=== PATIENT | male | born 1955 | race Caucasian/White ===

== ENCOUNTER 2018-06-08 10:37 | Day surgery (SDC) | payer MEDICAID ==
[2018-06-06 10:07] VITALS: BMI 28.3
[~2018-06-08 10:37] MED LIST: ACETAMINOPHEN TAB 500 MG TAB PO ONE; DEXAMETHASONE SOD PHOSPHATE 10 MG/ML 1 ML VIAL IV ONE; HYDROmorphone 0.5 MG/0.5 ML SYRINGE IVP PRN; LACTATED RINGERS 1,000 ML IV SCH; LIDOCAINE 1% 20 ML VIAL (10MG/ML) FOR IV START INTRADERMA PRN; MIDAZOLAM (PF) 2 MG/2 ML VIAL IV PRN; ONDANSETRON 4 MG/2 ML VIAL IVP ONE; ceFAZolin IN SWFI 2 GM/20 ML SYRINGE IVP ONE; fentaNYL (PF) 50 MCG/ML 2 ML AMP IV PRN; fentaNYL (PF) 50 MCG/ML 20 ML VIAL IVP PRN
[2018-06-08] MEDS ORDERED: fentaNYL (PF) 50 MCG/ML 2 ML AMP IV ONE (11:38)
[2018-06-08] MEDS ORDERED: MIDAZOLAM 2 MG/2 ML VIAL IV ONE (11:40)
[2018-06-08] MEDS ORDERED: ePHEDrine SULFATE/0.9% NACL/PF 50 MG/5 ML SYRINGE IV ONE (12:45)
[2018-06-08] MEDS ORDERED: GLYCOPYRROLATE 0.2 MG/ML 2 ML VIAL ONE (12:45)
[2018-06-08] MEDS ORDERED: MIDAZOLAM 2 MG/2 ML VIAL ONE (12:45)
[2018-06-08] MEDS ORDERED: fentaNYL (PF) 50 MCG/ML 2 ML AMP ONE (12:45)
[2018-06-08] MEDS ORDERED: PROPOFOL 10 MG/ML 20 ML VIAL IV ONE (12:45)
[2018-06-08] MEDS ORDERED: ROPIVACAINE 5 MG/ML 30 ML VIAL ONE (12:45)
[2018-06-08] MEDS ORDERED: DEXAMETHASONE SOD PHOSPHATE 4 MG/ML 1 ML VIAL ONE (12:45)
[2018-06-08] MEDS ORDERED: SUCCINYLCHOLINE CHLORIDE 100 MG/5 ML SYR IV ONE (12:45)
[2018-06-08] MEDS ORDERED: LIDOCAINE 1% INJ 10MG/ML (20 ML MDV) ONE (12:45)
[2018-06-08] MEDS ORDERED: PHENYLEPHRINE-0.9% NACL SYG 1 MG/10 ML SYRINGE ONE (12:45)
[2018-06-08] MEDS ORDERED: ceFAZolin 1,000 MG in SODIUM CHLORIDE 0.9% 1,000 ML IRRIGATION ONE (13:16)
[2018-06-08] MEDS ORDERED: LACTATED RINGERS 1,000 ML IV ONE (13:22)
[2018-06-08 14:41] VITALS: TEMP 97
[2018-06-08 16:04] VITALS: RESP 18
[2018-06-08 16:24] VITALS: BP 135/84; PULSE 84
--- NOTE | 2018-06-08 20:38 | OP ---
OPERATIVE REPORT DATE OF PROCEDURE: June 08, 2018. PREOPERATIVE DIAGNOSIS: Left closed comminuted displaced clavicle fracture. POSTOPERATIVE DIAGNOSIS: Left closed comminuted displaced clavicle fracture. OPERATION PERFORMED: Open reduction, internal fixation, left clavicle fracture. SURGEON: Noe Bear MD. MEDICAL TECHNOLOGIST BLOOD BANK: Mauro RODRIGUEZ. ANESTHESIA: General endotracheal. ESTIMATED BLOOD LOSS: 25 mL. TOURNIQUET: None. DRAINS: None. COMPLICATIONS: None apparent. DISPOSITION: Postanesthesia care unit. 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 He presented to my office with a 100% displaced and shortened comminuted midshaft clavicle fracture. Both operative and nonoperative management were discussed with him and he has decided to go forward with operative intervention. The risks of procedure were discussed with him in detail. These risks include, but are not limited to risk of infection, nerve damage, bleeding, pain, and a small risk of deep vein thrombosis which could lead to fatal pulmonary embolism. Further risk would include irritation from the hardware which could necessitate removal of the plate and screws in the future. All of Dr. Garnica's questions were answered to his satisfaction. Appropriate informed consent was obtained. DESCRIPTION OF THE PROCEDURE: Patient identified in preoperative holding area. Surgical sites were marked by both the patient and myself. He was given 2 g of Ancef IV for prophylactic purposes. He was then transported to the operative suite. He was placed supine on the operative table. A general anesthetic was then administered and dosed per the anesthesia without apparent complication. He was then placed into the beach chair position well-padded in preparation for surgery. Great care was taken to ensure that his cervical spine is in neutral alignment, well-padded and maintained that way throughout the operative procedure. Great care was also taken to ensure that his legs were appropriately padded as well. The left upper extremity was then prepped and draped in usual sterile fashion. Standard surgical pause undertaken to ensure that we were operating the correct site and that appropriate preoperative antibiotics were given. All staff in the room were in agreement we proceeded. The outlines of the acromion, AC joint, coracoid and clavicle were marked with a surgical pen. The outlines of the fracture were also marked with a surgical pen. A planned 7 to 10 cm incision centered over the fracture on the anterior aspect of the clavicle was then marked with a surgical pen. The incision was then made with a 15 blade scalpel. Dissection was carried down sharply to the surface of the clavicle. This was done to preserve thick flaps for closure over the hardware at the end of the case. Blunt dissection was then utilized. The fracture was midshaft. There was a very large anterior comminuted piece. I was able to reduce the fracture fairly easily with reduction clamps. The posterior aspect of the fracture keyed in very nicely. The large anterior butterfly fragment also keyed in very nicely. I was able to hold the medial and lateral main fragments of the fracture with a K-wire which was inserted from anterior to posterior. I then proceeded with reduction and fixation of the large anterior butterfly fragment. This was reduced with a [id number] clamp. I was then able to place two 2.3 mm bicortical nonlocking screws in a compression fracture from anterior to posterior to provide fixation of the butterfly fragment to the main lateral fragment of the fracture. This provided a near anatomic reduction of the butterfly fragment. I then proceeded with placement of a superior locking plate. We utilized an [employer] precontoured 3.5 mm clavicle locking plate. The area of the butterfly segment was fairly long. Therefore, we utilized a fairly long plate. I was able to get 3 bicortical screws both medial and lateral. I then proceeded with fixation. I started with a 3.5 mm bicortical nonlocking screw in the oblong hole of the medial aspect of the plate. I had excellent purchase in bone. I then placed a 3.5 mm bicortical nonlocking screw through the oblong hole in the lateral aspect of the plate. This was placed in a compression type fashion as well to further compress the fracture. This provided anatomic reduction of his fracture. I then proceeded to place 2 bicortical 3.5 mm locking screws in the medial aspect of the fracture and then two 3.5 mm bicortical locking screws through the lateral aspect of the plate and fracture. At this point in time, no further work was deemed necessary. The fracture had been reduced anatomically. The large anterior butterfly fragment had been reduced very nicely and keyed in nicely in an anatomic fashion. All screws had excellent purchase in bone. At this point time, no further work was deemed necessary. The wound was then thoroughly irrigated with sterile saline solution with antibiotic added. The deltotrapezial fascia was closed with #1 Vicryl interrupted suture. This provided a nice muscular fascial layer coverage of the plate. The subcutaneous wound was again thoroughly irrigated with sterile saline solution with antibiotic added. The subcutaneous tissue was closed with 2-0 Vicryl interrupted suture and the skin was closed with a running 3-0 subcuticular Quill suture. Dermabond was then applied to the incision. Sterile dressing was then applied. The patient's left upper extremity was placed into a standard sling. All sponge and needle counts were deemed correct prior to closure. The patient tolerated the procedure without apparent complication. He was transferred to recovery room in stable condition. MMODL / IJN: [id number] /
--- NOTE | 2018-06-09 07:51 | P.ONQ ---
Anesthesiology Proc Note - PNB - Peripheral Nerve Block Performed Left Interscalene Single Time Out Performed: Yes Procedure Start Time: :40 Procedure Stop Time: :45 Indication: Acute Post-Operative Pain, Requested by physician Sedation Type: Sedate with meaningful contact maintained Preparation: Sterile Prep Position: Supine Needle Size: 50mm (2") Needle Gauge: 21 Technique: Ultrasound (ropi .5% 30cc plus dexamethasone 4mg) Blood Aspirated: No Pain Paresthesia on Injection Noted: No Events: Uneventful and Well Tolerated
== END 2018-06-08 16:50 | disposition home or self-care (01) ==
LOC: OR 10:37
PROVIDERS: ATTEND Orthopaedic Surgery Sports Medicine
DX: S42.022A Displaced fracture of shaft of left clavicle, initial encounter for closed fracture (principal); Y93.23 Activity, snow (alpine) (downhill) skiing, snowboarding, sledding, tobogganing and snow tubing; I10 Essential (primary) hypertension; R51 Headache; N40.0 Benign prostatic hyperplasia without lower urinary tract symptoms; Z79.1 Long term (current) use of non-steroidal anti-inflammatories (NSAID); Z79.899 Other long term (current) drug therapy; Z79.891 Long term (current) use of opiate analgesic
CPT/HCPCS: 64415; 23515; C1713; J2250; J1100 ×2; J2405; J0690 ×2; J2001; J3010; J2795; J2370; J0330; J2704

== ENCOUNTER → 2021-04-08 | Outpatient (CLI) | payer MEDICAID ==
--- NOTE | 2021-04-08 10:06 | XR ---
EXAMINATION TYPE: XR Hip Bilateral and AP pelvis DATE OF EXAM: 04/08/2021 COMPARISON: NONE HISTORY: Pain TECHNIQUE: A single AP view of the pelvis is obtained. Two views of the bilateral hip are obtained. FINDINGS: There is no acute fracture/dislocation evident in the pelvis. There is moderate to severe narrowing of the superior compartment of the hip joint bilaterally. Soft tissue ossification adjacent to lateral margin of the acetabulum bilaterally no acute fracture. SI joint symmetric. No erosive ch anges. IMPRESSION: 1. Moderate to severe bilateral hip arthropathy correlate for femoral acetabular impingement.
== END | disposition home or self-care (01) ==
LOC: RADXRMAIN 08:18
PROVIDERS: ATTEND Internal Medicine
DX: M16.0 Bilateral primary osteoarthritis of hip (principal)
CPT/HCPCS: 73521

== ENCOUNTER 2021-11-14 12:22 | Emergency (ER) | payer MEDICAID ==
[2021-11-14 12:37] VITALS: RESP 16; TEMP 97.8
[2021-11-14] MEDS ORDERED: MECLIZINE 12.5 MG TAB PO STA (12:37)
[2021-11-14] MEDS ORDERED: SODIUM CHLORIDE 0.9% 1,000 ML IV STA (12:37)
[2021-11-14] MEDS ORDERED: SODIUM CHLORIDE 0.9% 500 ML 500 ML IV STA (12:37)
[2021-11-14 12:50] LABS: Basophils # (A) 0.1 k/uL (0-0.2); Basophils % (A) 1 %; Eosinophils # (A) 0.1 k/uL (0-0.7); Eosinophils % (A) 2 %; HCT 46.9 % (39.0-53.0); Lymphocytes # (A) 1.9 k/uL (1.0-4.8); Lymphocytes % (A) 23 %; MCH 32.2 pg (25.0-35.0); MCHC 34.1 g/dL (31.0-37.0); MCV 94.4 fL (80.0-100.0); Mean Platelet Volume 7.6; Monocytes # (A) 0.5 k/uL (0-1.0); Monocytes % (A) 6 %; Neutrophils # (A) 5.4 k/uL (1.3-7.7); Neutrophils % (A) 65 %; Platelet Count 255 k/uL (150-450); RBC 4.97 m/uL (4.30-5.90); RDW 12.4 % (11.5-15.5); WBC 8.3 k/uL (3.8-10.6)
[2021-11-14] MEDS ORDERED: ONDANSETRON 4 MG/2 ML VIAL IVP STA (12:59)
--- NOTE | 2021-11-14 12:59 | XR ---
EXAMINATION TYPE: XR chest 2V DATE OF EXAM: 11/14/2021 12:55 PM COMPARISON: None TECHNIQUE: XR chest 2V Frontal and lateral views of the chest. CLINICAL INDICATION:Male, 66 years old with history of Dizziness; FINDINGS: Lungs/Pleura: There is no evidence of pleural effusion, focal consolidation, or pneumothorax. Pulmonary vascularity: Unremarkable. Heart/mediastinum: Cardiomediastinal silhouette is unremarkable. Musculoskeletal: No acute osseous pathology. Fixation plate involving the left clavicle. IMPRESSION: No acute cardiopulmonary disease/process.
[2021-11-14 13:01] LABS: ALT 20 U/L (4-49); AST 30 U/L (17-59); African American GFR (CKD) >90 (>60 ml/min/1.73 sqM); Albumin 4.4 g/dL (3.5-5.0); Alkaline Phosphatase 84 U/L (38-126); Anion Gap 7 mmol/L; Blood Urea Nitrogen 17 mg/dL (9-20); Calcium 9.2 mg/dL (8.4-10.2); Carbon Dioxide 23 mmol/L (22-30); Chloride 110 mmol/L (98-107); Creatine Kinase 76 U/L (55-170); Glucose 98 mg/dL (74-99); Non-African American GFR(CKD) 87 (>60 ml/min/1.73 sqM); Potassium 4.5 mmol/L (3.5-5.1); Sodium 140 mmol/L (137-145); Total Bilirubin 1.5 mg/dL (0.2-1.3); Total Protein 7.6 g/dL (6.3-8.2)
--- NOTE | 2021-11-14 14:09 | ED ---
Dizziness HPI - General Chief Complaint: Dizziness Stated Complaint: Dizziness Time Seen by Provider: 11/14/21 12:37 Source: patient, family, RN notes reviewed Mode of arrival: ambulatory Limitations: no limitations - History of Present Illness Initial Comments: 58-year-old male with a history of bronchitis about 2 weeks ago who states he had some dizziness with lightheadedness and nausea starting 2 days ago. He states he had played golf earlier in the week he also states she's been exposed to someone with COVID-19 recently. Denies any headache he does state he gets dizziness with certain head movements. No focal weakness no fevers chills no sw eats. He did has noticed also his urine is darker than usual. No chest pain no palpitations no other complaints or modifying factors MD Complaint: dizziness, lightheadedness - Related Data Home Medications Medication Instructions Recorded Confirmed FLUoxetine HCL [PROzac] 20 mg PO QAM 02/02/14 06/08/18 Metoprolol Succinate 25 mg PO QAM 02/02/14 06/08/18 Ibuprofen [Motrin] 200 - 400 mg PO Q6HR PRN 08/01/14 06/08/18 Multivitamins, Thera [Multivitamin] 1 tab PO DAILY 08/01/14 06/08/18 [place]-3 Fatty Acids/Fish Oil [Fish 1 each PO DAILY 08/01/14 06/08/18 Oil 1,000 mg Softgel] HYDROcodone/APAP 7.5-325MG [[place]edar 1 tab PO Q6HR PRN 06/06/18 06/08/18 7.5-325] Previous Rx's Medication Instructions Recorded Doxycycline Hyclate 100 mg PO BID #10 tab 06/08/18 HYDROcodone/APAP 7.5-325MG [[place] 1 - 2 each PO Q6HR PRN #56 tab 06/08/18 7.5-325] ondansetron HCL [Zofran] 4 mg PO Q6HR PRN #30 tablet 06/08/18 Meclizine [Antivert] 25 mg PO TID #20 tab 11/14/21 Ondansetron Odt [Zofran Odt] 4 mg PO Q8HR PRN #15 tab 11/14/21 Allergies Allergy/AdvReac Type Severity Reaction Status Date / Time No Known Allergies Allergy Verified 02/14/19 11:03 Review of Systems ROS Statement: Those systems with pertinent positive or pertinent negative responses have been documented in the HPI. ROS Other: All systems not noted in ROS Statement are negative. Past Medical History Past Medical History: Hypertension Additional Past Medical History / Comment(s): fx left clavicle History of Any Multi-Drug Resistant Organisms: None Reported Past Surgical History: Prostate Surgery Additional Past Surgical History / Comment(s): BPH. Past Anesthesia/Blood Transfusion Reactions: No Reported Reaction Past Psychological History: No Psychological Hx Reported Additional Psychological History / Comment(s): CLAUSTROPHOBIA. Past Alcohol Use History: Occasional Past Drug Use History: None Reported - Past Family History Mother Family Medical History: No Reported History General Exam - General Exam Comments Initial Comments: This is a well-developed well-nourished awake alert oriented 4 male Limitations: no limitations General appearance: alert, in no apparent distress Head exam: Present: atraumatic, normocephalic, normal inspection Eye exam: Present: normal appearance, PERRL, EOMI. Absent: scleral icterus, conjunctival injection, periorbital swelling ENT exam: Present: mucous membranes dry Neck exam: Present: normal inspection, full ROM, other (No stridor JVD or bruits). Absent: tenderness, meningismus, lymphadenopathy Respiratory exam: Present: normal lung sounds bilaterally. Absent: respiratory distress, wheezes, rales, rhonchi, stridor Cardiovascular Exam: Present: regular rate, normal rhythm, normal heart sounds. Absent: systolic murmur, diastolic murmur, rubs, gallop, clicks GI/Abdominal exam: Present: soft, normal bowel sounds. Absent: distended, tenderness, guarding, rebound, rigid Extremities exam: Present: normal inspection, full ROM, normal capillary refill. Absent: tenderness, pedal edema, joint swelling, calf tenderness Back exam: Present: normal inspection Neurological exam: Present: alert, oriented X3, CN II-XII intact Psychiatric exam: Present: normal affect, normal mood Skin exam: Present: warm, dry, intact, normal color. Absent: rash Course Vital Signs 11/14/21 12:32 Temperature 97.8 F Pulse Rate 63 Respiratory 16 Rate Blood Pressure 154/98 O2 Sat by Pulse 98 Oximetry EKG Findings - EKG Results: EKG: interpreted by ERMD, WNL, sinus rhythm, normal axis, normal QRS, normal S T/T, no acute changes (Normal sinus rhythm rate 62. Interval was 79 QRS duration 88 QT since QTC 390/395 st-t wave changes) Medical Decision Making - Medical Decision Making I did reevaluate patient on several occasions he is feeling improved after IV hydration. Also dizziness has improved. The presentation appears be consistent with heat exhaustion and dehydration with a component of his previous episodes of vertigo. Patient will be discharged on appropriate medication including Antivert as well as Zofran and hydration and has been discussed. - Lab Data Result diagrams: 11/14/21 12:41 11/14/21 12:41 Lab Results 11/14/21 11/14/21 11/14/21 Range/Units 12:41 12:41 12:41 WBC 8.3 (3.8-10.6) k/uL RBC 4.97 (4.30-5.90) m/uL Hgb 16.0 (13.0-17.5) gm/dL Hct 46.9 (39.0-53.0) % MCV 94.4 (80.0-100.0) fL MCH 32.2 (25.0-35.0) pg MCHC 34.1 (31.0-37.0) g/dL RDW 12.4 (11.5-15.5) % Plt Count 255 (150-450) k/uL MPV 7.6 Neutrophils % 65 % Lymphocytes % 23 % Monocytes % 6 % Eosinophils % 2 % Basophils % 1 % Neutrophils # 5.4 (1.3-7.7) k/uL Lymphocytes # 1.9 (1.0-4.8) k/uL Monocytes # 0.5 (0-1.0) k/uL Eosinophils # 0.1 (0-0.7) k/uL Basophils # 0.1 (0-0.2) k/uL Sodium 140 (137-145) mmol/L Potassium 4.5 (3.5-5.1) mmol/L Chloride 110 H (98-107) mmol/L Carbon Dioxide 23 (22-30) mmol/L Anion Gap 7 mmol/L BUN 17 (9-20) mg/dL Creatinine 0.90 (0.66-1.25) mg/dL Est GFR (CKD-EPI)AfAm >90 (>60 ml/min/1.73 sqM) Est GFR (CKD-EPI)NonAf 87 (>60 ml/min/1.73 sqM) Glucose 98 (74-99) mg/dL Calcium 9.2 (8.4-10.2) mg/dL Magnesium 2.0 (1.6-2.3) mg/dL Total Bilirubin 1.5 H (0.2-1.3) mg/dL AST 30 (17-59) U/L ALT 20 (4-49) U/L Alkaline Phosphatase 84 (38-126) U/L Creatine Kinase 76 (55-170) U/L Troponin I 0.013 (0.000-0.034) ng/mL Total Protein 7.6 (6.3-8.2) g/dL Albumin 4.4 (3.5-5.0) g/dL Coronavirus (PCR) (Not Detectd) Influenza Type A RNA (Not Detectd) Influenza Type B (PCR) (Not Detectd) 11/14/21 11/14/21 Range/Units 13:39 13:39 WBC (3.8-10.6) k/uL RBC (4.30-5.90) m/uL Hgb (13.0-17.5) gm/dL Hct (39.0-53.0) % MCV (80.0-100.0) fL MCH (25.0-35.0) pg MCHC (31.0-37.0) g/dL RDW (11.5-15.5) % Plt Count (150-450) k/uL MPV Neutrophils % % Lymphocytes % % Monocytes % % Eosinophils % % Basophils % % Neutrophils # (1.3-7.7) k/uL Lymphocytes # (1.0-4.8) k/uL Monocytes # (0-1.0) k/uL Eosinophils # (0-0.7) k/uL Basophils # (0-0.2) k/uL Sodium (137-145) mmol/L Potassium (3.5-5.1) mmol/L Chloride (98-107) mmol/L Carbon Dioxide (22-30) mmol/L Anion Gap mmol/L BUN (9-20) mg/dL Creatinine (0.66-1.25) mg/dL Est GFR (CKD-EPI)AfAm (>60 ml/min/1.73 sqM) Est GFR (CKD-EPI)NonAf (>60 ml/min/1.73 sqM) Glucose (74-99) mg/dL Calcium (8.4-10.2) mg/dL Magnesium (1.6-2.3) mg/dL Total Bilirubin (0.2-1.3) mg/dL AST (17-59) U/L ALT (4-49) U/L Alkaline Phosphatase (38-126) U/L Creatine Kinase (55-170) U/L Troponin I (0.000-0.034) ng/mL Total Protein (6.3-8.2) g/dL Albumin (3.5-5.0) g/dL Coronavirus (PCR) Not Detected (Not Detectd) Influenza Type A RNA Not Detected (Not Detectd) Influenza Type B (PCR) Not Detected (Not Detectd) - Radiology Data Radiology results: report reviewed (Imaging reviewed as well as report no acute findings.), image reviewed Disposition Clinical Impression: Dehydration, Heat exhaustion, Benign paroxysmal positional vertigo Disposition: HOME SELF-CARE Condition: Good Instructions (If sedation given, give patient instructions): Dizziness (ED), Dehydration (ED), Heat Exhaustion (ED) Prescriptions: Meclizine [Antivert] 25 mg PO TID #20 tab Ondansetron Odt [Zofran Odt] 4 mg PO Q8HR PRN #15 tab PRN Reason: Nausea Is patient prescribed a controlled substance at d/c from ED?: No Referrals: Carmencita Blas MD [Primary Care Provider] - 1-2 days Decision Date: 11/14/21 Decision Time: 14:36
[2021-11-14 14:51] VITALS: BP 140/71; PULSE 56
== END 2021-11-14 14:56 | disposition home or self-care (01) ==
LOC: EC 12:22
DX: T67.5XXA Heat exhaustion, unspecified, initial encounter (principal); E86.0 Dehydration; H81.10 Benign paroxysmal vertigo, unspecified ear; I10 Essential (primary) hypertension; Z20.822 Contact with and (suspected) exposure to COVID-19; Z79.899 Other long term (current) drug therapy
CPT/HCPCS: 36415; 93005; 80053; 82550; 83735; 84484; 85025; 87502; 87635; 71046; 99284; 96374; 96361; J2405

== ENCOUNTER → 2022-05-20 | Outpatient (CLI) | payer MEDICAID ==
[2022-05-20 16:33] LABS: African American GFR (CKD) >90 (>60 ml/min/1.73 sqM); Blood Urea Nitrogen 16 mg/dL (9-20); Non-African American GFR(CKD) 86 (>60 ml/min/1.73 sqM)
--- NOTE | 2022-05-20 17:18 | CT ---
EXAMINATION TYPE: CT brain wo/w con DATE OF EXAM: 05/20/2022 COMPARISON: None. HISTORY: Dizziness and TINNITUS OF BOTH EARS. CT DLP: 2387.10 mGycm Automated exposure control for dose reduction was used. CONTRAST: CT scan of the head is performed without and with IV Contrast, patient injected with 85 mL of Isovue 300. FINDINGS: Noncontrast images show no acute intracranial hemorrhage or midline shift. Postcontrast images show no suspicious enhancing mass. The ventricles and sulci are within normal li mits in size for patient's age. Jaquez-white matter differentiation is maintained. No suspicious opacif ication of the mastoid air cells is seen bilaterally. The globes are intact and the visualized sinus es are clear. Nasal septum is deviated to left of midline. IMPRESSION: No suspicious finding is seen to account for patient's clinical symptoms.
--- NOTE | 2022-05-20 21:00 | US ---
EXAMINATION TYPE: US carotid duplex BILAT DATE OF EXAM: 05/20/2022 COMPARISON: NONE CLINICAL HISTORY: 67-year-old male I65.23 CAROTID STENOSIS BILATERAL. Tinnitus of ears. TECHNIQUE: Carotid duplex ultrasound examination. Indirect Doppler criteria was utilized. FINDINGS: EXAM MEASUREMENTS: RIGHT: Peak Systolic Velocity (PSV) cm/sec ----- Right CCA: 97.1 ----- Right ICA: 85.3 *bulb measurement ----- Right ECA: 92.7 ICA/CCA ratio: 0.9 RIGHT: End Diastole cm/sec ----- Right CCA: 25.6 ----- Right ICA: 22.6 ----- Right ECA: 17.6 LEFT: Peak Systolic Velocity (PSV) cm/sec ----- Left CCA: 122.8 ----- Left ICA: 104.3 *bulb measurement ----- Left ECA: 110.8 ICA/CCA ratio: 0.8 LEFT: End Diastole cm/sec ----- Left CCA: 30.2 ----- Left ICA: 25.6 ----- Left ECA: 13.9 VERTEBRALS (direction of flow): Right Vertebral: Antegrade Left Vertebral: Antegrade Rhythm: Normal MANAGER MARKET RESEARCH NOTES: Elevated velocities within prox right CCA (130.2 cm/s) and mid left CCA (127.5 cm/ s). Some plaque seen at bilateral bulb. IMPRESSION: 1. Mildly elevated velocities within the proximal right CCA and mid left CCA. Findings may be due to turbulent flow, hypertension, or could reflect [id number] upstream stenoses such as at the arc h vessel origins. 2. No hemodynamically significant internal carotid artery stenosis on either side. Criteria for Assigning % of Stenosis / Diameter reduction (Estimation based on the indirect measurements of the internal carotid artery velocities (ICA PSV). 1. Normal (no stenosis)=ICA PSV < 125 cm/s: ratio < 2.0: ICA EDV<40 cm/s. 2. Less than 50% stenosis=ICA PSV < 125 cm/s: ratio < 2.0: ICA EDV<40 cm/s. 3. 50 to 69% stenosis=ICA PSV of 125 to 230 cm/s: ration 2.0 ? 4.0: ICA EDV 40-100 cm/s. 4. Greater than 70% stenosis to near occlusion= ICA PSV > 230 cm/s: ratio > 4.0: ICA EDV > 100 cm/s. 5. Near occlusion= ICA PSV velocities may be low or undetectable: variable ratio and ICA EDV. 6. Total occlusion=unable to detect flow.
== END | disposition home or self-care (01) ==
LOC: RADUSWWP 14:45
PROVIDERS: ATTEND Internal Medicine
DX: I65.23 Occlusion and stenosis of bilateral carotid arteries (principal); H93.13 Tinnitus, bilateral
CPT/HCPCS: 82565; 84520; 93880; 70470; 36415; Q9967

== ENCOUNTER → 2024-01-05 | Outpatient (CLI) | payer MEDICAID ==
--- NOTE | 2024-01-05 18:59 | XR ---
EXAMINATION TYPE: XR KUB DATE OF EXAM: 01/05/2024 HISTORY: Pain Comparison: None.Single KUB is submitted for interpretation. Findings: Right renal calculi: 3 mm calculus lower pole right kidney. Additional 3 mm calculus upper pole right kidney. Overlying bowel content limits evaluation. Right ureteral calculi: None Visualized. Left renal calculi: 3 mm calculus lower pole left kidney. Left ureteral calculi: 2.5 mm right UVJ calculus. Pelvic calcifications: None Visualized. Bowel gas pattern is unremarkable. No free air. No mass effects. IMPRESSION: 1. As above
--- NOTE | 2024-01-06 10:09 | CT ---
EXAMINATION TYPE: CT abdomen pelvis wo con DATE OF EXAM: 01/05/2024 COMPARISON: 02/02/2014 HISTORY: N20.1 RIGHT SIDE RENAL CALCULI Examination of the solid and hollow viscera is limited given the lack of contrast. FINDINGS: LUNG BASES: No evidence for nodule. No evidence for infiltrate. LIVER/GB: The gallbladder is unremarkable. No space-occupying hepatic lesion. PANCREAS: No pancreatic mass identified. No inflammatory process seen. SPLEEN: No evidence for splenomegaly. No intrasplenic lesions seen. ADRENALS: No adrenal nodules identified. No evidence for thickening. KIDNEYS: No evidence for renal mass. 2.5 mm right UVJ calculus resulting in mild right-sided hydronep hrosis. 3 mm calculus mid pole right kidney. Additional nonobstructing 3 mm calculus upper pole right kidney. 3 mm calculus lower pole left kidney. 2 mm calculus left kidney midpole. No left-sided hydro nephrosis. BOWEL: Appendix has a normal appearance. No evidence of bowel obstruction. No inflammatory process. Lymph nodes: No evidence for adenopathy greater than 1 cm. Abdominal aorta: Atheromatous changes seen. No evidence for aneurysm. Genital organs: No significant abnormality. Other: No significant abnormality. IMPRESSION: 2.5 mm right UVJ calculus resulting in mild right-sided hydronephrosis.
== END | disposition home or self-care (01) ==
LOC: RADXRMAIN 17:59
PROVIDERS: ATTEND Urology
DX: N13.2 Hydronephrosis with renal and ureteral calculous obstruction (principal)
CPT/HCPCS: 74018; 74176

== ENCOUNTER → 2024-01-08 | Outpatient (CLI) | payer MEDICAID ==
--- NOTE | 2024-01-08 11:50 | XR ---
EXAMINATION TYPE: XR KUB DATE OF EXAM: 01/08/2024 Comparison: 01/05/2024 Clinical History: 68-year-old male URETERAL CALCULUS Findings: Suspect a 4 mm nonobstructive left renal stone. 5 mm mid right renal stone. Moderate stool right side of the abdomen and mild within the left side of the abdomen. No other definite suspicious calcificat ions seen. Nonobstructive bowel gas pattern. Mild degenerative change both hips. Impression: Bilateral renal calculi measuring up to 5 mm. No other definite suspicious calcification is radiograp hically apparent. [facility], , 01/08/2024 11:48 AM
== END ==
LOC: LABMAIN 10:39
PROVIDERS: ATTEND Urology
DX: N20.2 Calculus of kidney with calculus of ureter (principal)
CPT/HCPCS: 74018

== ENCOUNTER → 2024-07-04 | Outpatient (CLI) | payer MEDICAID ==
[2024-07-04 15:11] LABS: Hepatitis A Antibody IgM Nonreactive (Nonreactive); Hepatitis B Core IgM Nonreactive (Nonreactive); Hepatitis B Surface Antigen Nonreactive (Nonreactive); Hepatitis C IgG Antibody Nonreactive (Nonreactive)
[2024-07-04 15:16] LABS: % Iron Saturation 30.9 (15.00-50.00)
[2024-07-04 19:35] LABS: DNA Double-Stranded Positive (Negative)
[2024-07-05 11:00] LABS: Smooth Muscle Antibody 4 UNITS (<20)
[2024-07-05 11:32] LABS: Free Kappa Lt Chain Qnt, Serum 1.24 mg/dL (0.33-1.94); Free Lambda Lt Chain Qnt, Seru 1.36 mg/dL (0.57-2.63)
[2024-07-05 13:17] LABS: HLA B27 NEGATIVE
[2024-07-06 09:57] LABS: Aldolase 4.2 U/L (1.2-7.6)
== END | disposition home or self-care (01) ==
LOC: LABWHC1 11:19
PROVIDERS: ATTEND Internal Medicine
DX: R76.8 Other specified abnormal immunological findings in serum (principal)
CPT/HCPCS: 36415; 80074; 82085; 82550; 82728; 82784; 82785; 83516; 83540; 83550; 83883; 84156; 84166; 85652; 86160; 86162; 86225; 86235; 86334; 86812